=== PATIENT | female | born 1960 | race African-American/Black ===

== ENCOUNTER 2017-12-13 10:34 | Emergency (ER) | payer SELFPAY ==
[2017-12-13] MEDS: IV NORMAL SALINE 1000ML BAG 1,000 ML IV (11:54)
[2017-12-13] MEDS: ONDANSETRON PF 4 MG/2 ML VIAL. IV (11:57)
[2017-12-13] MEDS: DICYCLOMINE HCL 10 MG CAPSULE PO (11:57)
[2017-12-13] MEDS: KETOROLAC 30 MG/ML INJ. IV (11:57)
[2017-12-13 11:59] LABS: ADD MAN DIFF? NO
[2017-12-13 12:06] LABS: BASO # 0.1 x10^3/uL (0.0-0.2); BASO % 1 % (0-3); EOS % 0 % (0-3); HEMOGLOBIN 16.9 g/dL (12.0-15.5); LYMPH # 1.8 x10^3/uL (1.0-4.8); LYMPH % 20 % (24-48); MEAN CORPUSCULAR HEMOGLOBIN 31 pg (25-35); MEAN CORPUSCULAR HGB CONC 35 g/dL (31-37); MEAN CORPUSCULAR VOLUME 91 fL (79-100); MONO # 0.7 x10^3/uL (0.0-1.1); MONO % 8 % (0-9); NEUT # 6.2 x10^3uL (1.8-7.7); NEUT % 71 % (31-73); PLATELET COUNT 240 x10^3/uL (140-400); RED BLOOD COUNT 5.39 x10^6/uL (3.50-5.40); RED CELL DISTRIBUTION WIDTH 13.2 % (11.5-14.5); WHITE BLOOD COUNT 8.8 x10^3/uL (4.0-11.0)
[2017-12-13 12:17] LABS: ANION GAP 11 (6-14); BLOOD UREA NITROGEN 15 mg/dL (7-20); BUN/CREATININE RATIO 19 (6-20); CALCIUM 9.7 mg/dL (8.5-10.1); CARBON DIOXIDE 30 mmol/L (21-32); CHLORIDE 95 mmol/L (98-107); CREATININE 0.8 mg/dL (0.6-1.0); GFR 90.1; GLUCOSE 104 mg/dL (70-99); POTASSIUM 3.5 mmol/L (3.5-5.1); SODIUM 136 mmol/L (136-145)
[2017-12-13 12:23] LABS: ALBUMIN 3.7 g/dL (3.4-5.0); ALBUMIN/GLOBULIN RATIO 0.7 (1.0-1.7); ALK PHOS 70 U/L (46-116); ALT (SGPT) 28 U/L (14-59); AST (SGOT) 40 U/L (15-37); LIPASE 592 U/L (73-393); TOTAL BILIRUBIN 0.9 mg/dL (0.2-1.0); TOTAL PROTEIN 8.7 g/dL (6.4-8.2)
[2017-12-13] MEDS ORDERED: CCPD PATIENT. MC (13:00)
[2017-12-13] MEDS: IOHEXOL 300 MG/ML 100ML VIAL. IV (13:13)
[2017-12-13 13:24] LABS: ETHANOL < 10 mg/dL (0-10)
[2017-12-13 14:21] LABS: BILIRUBIN,URINE NEGATIVE (NEG); CLARITY,URINE CLEAR; COLOR,URINE YELLOW; GLUCOSE,URINE NEGATIVE (NEG); NITRITE,URINE POSITIVE (NEG); PH,URINE 5.5; PROTEIN,URINE NEGATIVE (NEG-TRACE)
[2017-12-13 14:28] LABS: AMPHETAMINE/METHAMPHETAMINE NEG (NEG); BARBITURATES NEG (NEG); BENZODIAZEPINES NEG (NEG); CANNABINOIDS POS (NEG); COCAINE NEG (NEG); ETHANOL, URINE NEG (NEG); METHADONE NEG (NEG); OPIATES NEG (NEG); PHENCYCLIDINE NEG (NEG)
[2017-12-13 14:34] LABS: BACTERIA,URINE MANY /HPF (0-FEW); SQUAMOUS EPITHELIAL CELL,UR MANY /LPF
[2017-12-13 14:35] LABS: HYALINE CASTS, URINE MODERATE /HPF
== END 2017-12-13 15:24 | disposition home or self-care (01) ==
LOC: ER 10:34
DX: K52.9 Noninfective gastroenteritis and colitis, unspecified (principal); N39.0 Urinary tract infection, site not specified
CPT/HCPCS: 36415; 74177; 80053; 80307; 81001; 83690; 85025; 96361; 96374; 96375; 99285-25; G0480; J1885; J2405; J7030; Q9967

== ENCOUNTER 2018-02-17 16:24 | Emergency (ER) | payer OTHER ==
[2018-02-17] MEDS: CYCLOBENZAPRINE 10 MG TABLET. PO (17:57)
[2018-02-17] MEDS: HYDROcodone/APAP 5/325MG 1 TAB TABLET PO (17:57)
== END 2018-02-17 17:59 | disposition home or self-care (01) ==
LOC: ER 16:24
DX: S16.1XXA Strain of muscle, fascia and tendon at neck level, initial encounter (principal); M25.511 Pain in right shoulder; M47.9 Spondylosis, unspecified; V43.52XA Car driver injured in collision with other type car in traffic accident, initial encounter; Y93.I9 Activity, other involving external motion; Y92.410 Unspecified street and highway as the place of occurrence of the external cause; Y99.8 Other external cause status
CPT/HCPCS: 72125; 73030; 99284-25

== ENCOUNTER 2018-06-10 23:02 | Emergency (ER) | payer BC, OTHER ==
[2018-06-10] MEDS: KETOROLAC 30 MG/ML INJ. IM (23:48)
[2018-06-10] MEDS: HYDROcodone/APAP 5/325MG 1 TAB TABLET PO (23:48)
[2018-06-10] MEDS: DEXAMETHASONE 4 MG TABLET PO (23:48)
[2018-06-10] MEDS: ORPHENADRINE CITRATE 60 MG/2 ML VIAL. IM (23:49)
[2018-06-10] MEDS: LIDOCAINE (700MG/PATCH) PATCH. TD (23:50)
== END 2018-06-11 00:10 | disposition home or self-care (01) ==
LOC: ER 06-11 00:10
DX: M54.40 Lumbago with sciatica, unspecified side (principal); M25.551 Pain in right hip
CPT/HCPCS: 96372; 99284; J1885; J2360; J8540